=== PATIENT | male | born 1955 | race Caucasian/White ===

== ENCOUNTER 2019-05-10 11:07 | Emergency (ER) | payer SELFPAY ==
--- NOTE | 2019-05-10 11:25 | UC ---
Respiratory Complaint HPI - HPI Summary HPI Summary: Patient is a 63 year old gentleman, who present today to the urgent care with for upper respiratory symptoms for past 10 days. He reports sore throat, cough and congestion. Cough is now productive of greenish sputum. He is not sure but possibility might have been exposed to some sick contacts. Reports associated headache, sinus pressure, postnasal drip and chest congestion. Denies any fever, chills, chest pain or shortness of breath . Denies any abdominal pain , nausea or vomiting , diarrhea or constipation. He has not tried any over the counter medication so far. He and his have recently moved to [place] 2 weeks ago He was not able to sleep because of the coughing. - History of Current Complaint Stated Complaint: CONGESTION/COUGH Time Seen by Provider: 05/10/19 11:22 Hx Obtained From: Patient - Allergies/Home Medications Allergies/Adverse Reactions: Allergies Allergy/AdvReac Type Severity Reaction Status Date / Time No Known Allergies Allergy Verified 05/10/19 11:32 PMH/Surg Hx/FS Hx/Imm Hx - Additional Past Medical History Additional PMH: Past Medical History : Stage IV stomach cancer, lung tumors Past Surgical History: Meniscectomy last year Family History : non contributory Social History : No alcohol, non smoker, no drug use. 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 Negative: Ear Ache Respiratory: Positive: Cough - Productive of greenish sputum Cardiovascular: Positive: Negative Gastrointestinal: Positive: Negative Genitourinary: Positive: Negative Motor: Positive: Negative Neurovascular: Positive: Negative Musculoskeletal: Positive: Negative Neurological: Positive: Negative Psychological: Positive: Negative Is Patient Immunocompromised?: No Physical Exam - Summary Physical Exam Summary: Physical Exam: Const: Appears well. No signs of apparent distress present. Alert and oriented x 3. Musculo: Walks with a normal gait. Head/Face: Atraumatic, normocephalic on inspection. Eyes: EOMI and PERRLA in both eyes. Conjunctivae clear. No discharge noted ENT: Hearing normal, TM normal appearing bilaterally, non bulging , non erythematous . No significant tenderness to palpation on maxillary and frontal sinus. Mild pharyngeal erythema without exudates . Uvula is midline. Tongue with nodules on the posterior aspect There are bilateral anterior cervical lymphadenopathy noted. Not much tender to palpate Respiratory: Respirations are unlabored. Lungs clear to auscultation bilaterally, no wheezing , rhonchi or rales noted . CVS: Regular rate and Rhythm, S1S2 normal , no murmurs identified. Extremities: Peripheral circulation is grossly normal. Pulses 2+ Abdomen : Soft non tender , nondistended , Bowel sounds present . No guarding , rebound tenderness or rigidity noted. Skin: No lesions or rash located on the upper extremities or on the lower extremities. Neuro: Cranial nerves II to XII intact, motor and sensory intact. DTR Intact bilaterally. Mood is normal. Affect is normal. Triage Information Reviewed: Yes Vital Signs Reviewed: Yes Respiratory Course/Dx - Course Course Of Treatment: During the visit today, we obtained a rapid strep test and throat culture . We discussed the findings consistent with sinusitis and further plan to treat it with antibiotics, and anti- allergy/Decongestant and Tessalon for cough. I will prescribe the medication to the pharmacy . He does not have a primary care doctor, referral provided. Patient expressed understanding . - Differential Dx/Diagnosis Provider Diagnosis: Sinusitis Discharge - Sign-Out/Discharge Documenting (check all that apply): Patient Departure All imaging exams completed and their final reports reviewed: No Studies - Discharge Plan Condition: Stable Disposition: HOME Prescriptions: Amoxicillin/Clavulanate TAB* [Augmentin TAB 875*] 875 mg PO BID 14 Days #28 tab Benzonatate CAP* [Tessalon 100 MG CAP*] 100 mg PO TID PRN 10 Days #30 cap PRN Reason: Cough Loratadine/Pseudoephedrine [Claritin-D 24 Hour Tablet] 1 each PO DAILY 14 Days # 14 tab.er.24h Patient Education Materials: Sinusitis (ED) Referrals: [facility] [Outside] - 1 Week No Primary Care Phys,NOPCP [Primary Care Provider] - Additional Instructions: Please start taking the medication as prescribed to the pharmacy . Take ibuprofen or Tylenol as needed for fever Maintain hydration Follow up: Referral for primary care physician. Follow-up in one week if needed Patients blood pressure slightly high in Urgent care today , plan follow up with PCP for better control Return to Urgent care / ER if symptoms get worse. - Billing Disposition and Condition Condition: STABLE Disposition: Home
[2019-05-10 11:32] VITALS: BP 149/91
== END 2019-05-10 12:10 | disposition home or self-care (01) ==
LOC: UCEAST 11:07
DX: J32.9 Chronic sinusitis, unspecified (principal); Z85.028 Personal history of other malignant neoplasm of stomach
CPT/HCPCS: 87070; 87651; 99202; G0463

== ENCOUNTER 2019-05-18 11:07 | Emergency (ER) | payer MEDICAID ==
[2019-05-18 11:32] VITALS: BP 148/91
--- NOTE | 2019-05-18 12:14 | UC ---
Respiratory Complaint HPI - HPI Summary HPI Summary: Mr. Monreal presented frustrated because he's had an irritating cough for several months. He coughs up brown sputum especially when he is lying in bed at night and this interferes with his sleep and his 's. He has seen medical billing and coding instructor several times and been on several courses of antibiotics the names of which she cannot give me. He had a chest x-ray 3 weeks ago at [facility]. He has been told he has water on the lungs and also that he he has COPD. 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 He denies any shortness of breath even with exertion. 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 - History of Current Complaint Chief Complaint: UCRespiratory Stated Complaint: CONGESTION Time Seen by Provider: 05/18/19 11:51 Hx Obtained From: Patient, Medical Records Onset/Duration: Gradual Onset, Lasting Weeks Timing: Constant Severity Initially: Moderate Severity Currently: Moderate Pain Intensity: 5 Character: Cough: Productive - Dark brown sputum Aggravating Factors: Recumbent Position Alleviating Factors: Nothing Associated Signs And Symptoms: Negative: Dyspnea, Fever, Chills, Pleuritic Chest Pain, Wheezing, Dizziness - Allergies/Home Medications Allergies/Adverse Reactions: Allergies Allergy/AdvReac Type Severity Reaction Status Date / Time No Known Allergies Allergy Verified 05/18/19 11:27 Home Medications: Home Medications NK [No Home Medications Reported] 05/18/19 [History Confirmed 05/18/19] PMH/Surg Hx/FS Hx/Imm Hx Previously Healthy: Yes - Surgical History Surgical History: Yes Surgery Procedure, Year, and Place: meniscus, exploratory lung surgery '98 - tumor removal - Family History Known Family History: Positive: Non-Contributory - Social History Alcohol Use: None Substance Use Type: None Smoking Status (MU): Never Smoked Tobacco Review of Systems All Other Systems Reviewed And Are Negative: Yes Constitutional: Positive: Negative Skin: Positive: Negative Respiratory: Positive: Cough Physical Exam - Summary Physical Exam Summary: He is nontoxic in appearance with stable vitals. He is belligerent. Triage Information Reviewed: Yes Appearance: Well-Appearing, No Pain Distress Vital Signs: Initial Vital Signs Temp 99.3 F 05/18/19 11:22 Pulse 113 05/18/19 11:22 Resp 18 05/18/19 11:22 BP 148/91 05/18/19 11:22 Pulse Ox 98 05/18/19 11:22 Vital Signs Reviewed: Yes ENT: Positive: Normal ENT inspection Respiratory Exam: Normal Respiratory: Positive: Chest non-tender, Lungs clear, Normal breath sounds, No respiratory distress, No accessory muscle use. Negative: Respiratory distress, Decreased breath sounds, Accessory muscle use, Crackles, Rhonchi, Stridor, Wheezing Cardiovascular: Positive: RRR Musculoskeletal: Positive: No Edema Psychological Exam: Other - Psychological exam was not performed however, the patient was angry and belligerent from the moment I walked in the room. Respiratory Course/Dx - Course Course Of Treatment: Mr. Frey seems frustrated with his lack of diagnosis and treatment for his cough. I do not have access to any previous imaging which was done at [facility] but he is refusing chest imaging here. I do not think another course of antibiotics is appropriate. I recommended a casino gaming worker consultation and he tells me that he's been to 3 pulmonologists in [place] and they all of refused to take care of him because he has Medicaid. Again he seemed to be angry from the moment I entered the room and would go off on rants. He is upset at the questions asked in the registration process especially. He began to get more belligerent in the room and I recommended to him that I prefer him to pulmonology and if they refused to see him perhaps we can have hospital administration help us out. At that suggestion he essentially stormed out of the room and left prior to being discharged. - Differential Dx/Diagnosis Provider Diagnosis: Cough Discharge - Sign-Out/Discharge Documenting (check all that apply): Patient Departure All imaging exams completed and their final reports reviewed: No Studies - Discharge Plan Condition: Stable Disposition: ELOPEMENT Referrals: No Primary Care Phys,NOPCP [Primary Care Provider] - - Billing Disposition and Condition Condition: STABLE Disposition: Elopement
== END 2019-05-18 12:10 | disposition left against medical advice (07) ==
LOC: UCEAST 11:07
DX: R05 Cough (principal)
CPT/HCPCS: 99212; G0463

== ENCOUNTER 2019-06-08 11:26 | Emergency (ER) | payer MEDICAID ==
[2019-06-08 12:02] VITALS: BP 120/86
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
[2019-06-08] MEDS ORDERED: Mupirocin 2% OINT* TUBE TOPICAL ONE (13:36)
== END 2019-06-08 13:50 | disposition home or self-care (01) ==
LOC: UCEAST 11:26
DX: S80.12XA Contusion of left lower leg, initial encounter (principal); V03.19XA Pedestrian with other conveyance injured in collision with car, pick-up truck or van in traffic accident, initial encounter; Y93.55 Activity, bike riding; Y92.410 Unspecified street and highway as the place of occurrence of the external cause; Y99.8 Other external cause status; R60.9 Edema, unspecified; F31.9 Bipolar disorder, unspecified
CPT/HCPCS: 99212; G0463